=== PATIENT | female | born 1960 | race Caucasian/White ===

== ENCOUNTER 2023-10-26 08:50 | Emergency (ER) | payer BC ==
[~2023-10-26] VITALS: Ht 167.6 cm; Wt 70.2 kg
[~2023-10-26 08:50] MED LIST: CITA20TA28 PO; LIDO700A5 TP; TRAZ-256 PO
[2023-10-26 10:52] LABS: BASOPHILS # (AUTO) 0.1 X10'3 (0-0.2); BASOPHILS % (AUTO) 0.3 % (0-1); EOSINOPHILS % (AUTO) 0.2 % (0-6); HEMATOCRIT 34.5 % (35.0-45.0); HEMOGLOBIN 11.6 g/dl (12.0-16.0); LYMPHOCYTES # (AUTO) 0.9 X10'3 (1.1-4.8); LYMPHOCYTES % (AUTO) 4.8 % (21-51); MEAN CORPUSCULAR HEMOGLOBIN 29.6 PG (27.0-31.0); MEAN CORPUSCULAR HGB CONC 33.6 g/dL (33.0-36.5); MEAN PLATELET VOLUME 6.9 FL (7.4-10.4); MONOCYTES # (AUTO) 0.8 X10'3 (0-0.9); MONOCYTES % (AUTO) 4.3 % (2-12); NEUTROPHILS # (AUTO) 17.5 X10'3 (1.8-7.7); NEUTROPHILS % (AUTO) 90.4 % (42-75); PLATELET COUNT 378 X10'3 (140-440); RED BLOOD COUNT 3.92 X10'6 (4.20-5.60); RED CELL DISTRIBUTION WIDTH 13.1 % (11.5-14.5); WHITE BLOOD COUNT 19.4 X10'3 (4.5-11.0)
[2023-10-26 11:11] LABS: ALANINE AMINOTRANSFERASE 37 U/L (12-78); ALBUMIN 2.6 G/DL (3.4-5.0); ALBUMIN/GLOBULIN RATIO 0.6 (1.1-1.5); ALKALINE PHOSPHATASE 139 IU/L (46-116); AMYLASE 16 U/L (25-115); ANION GAP 11 (8-16); ASPARTATE AMINO TRANSFERASE 16 U/L (10-37); BILIRUBIN,TOTAL 0.3 MG/DL (0.1-1.0); CALCIUM 8.7 MG/DL (8.5-10.1); CHLORIDE 95 MMOL/L (99-107); CREATININE 0.71 MG/DL (0.40-0.90); GLUCOSE 160 MG/DL (70-104); LIPASE 23 U/L (16-77); POTASSIUM 3.5 MMOL/L (3.5-5.1); SODIUM 132 MMOL/L (135-145); TOTAL CARBON DIOXIDE 25.7 MMOL/L (24-32); TOTAL PROTEIN 7.2 G/DL (6.4-8.2); eCRCL 78 ML/MIN; eGFR 84 ML/MIN
[2023-10-26 11:19] LABS: BLOOD UREA NITROGEN 5 MG/DL (7-18)
[2023-10-26] MEDS: normal saline 1000ML IV soln IV ONE (11:41)
[2023-10-26] MEDS: ondansetron/PF 4mg/2ml inj IV ONE (11:41)
[2023-10-26] MEDS: morphine 4 MG/ML inj SYRINge IV ONE ×6 (11:41→23:54)
[2023-10-26] MEDS ORDERED: iohexol 300mg/ml 100ml inj. ONE (11:53)
[2023-10-26] MEDS: acetaminophen 325mg tablet PO ONE (11:54)
[2023-10-26] MEDS: piperacillin/tazo 4.5gm/100ml 100 ML IV SCH ×2 (12:14→20:20)
[2023-10-26 14:12] LABS: BILIRUBIN,URINE NEGATIVE (Neg); CLARITY,URINE CLEAR (Clear); COLOR,URINE STRAW (Yellow); GLUCOSE, URINE NEGATIVE (Neg); KETONES,URINE NEGATIVE (Neg); LEUKOCYTE ESTERASE ,URINE TRACE (Neg); NITRITES, URINE NEGATIVE (Neg); OCCULT BLOOD,URINE MODERATE (Neg); PH,URINE 6.5 (4.8-8.0); PROTEIN,URINE NEGATIVE (Neg); UROBILINOGEN,URINE 0.2 E.U/dL (0.2-1.0)
[2023-10-26 14:18] LABS: UA COLLECTION TYPE STRAIGHT CATH
[2023-10-26 14:20] LABS: BACTERIA,URINE NONE SEEN /HPF (Neg); SQUAMOUS EPITHELIAL CELL,UR FEW /LPF (FEW); WBC,URINE 0-4 /HPF (0-4)
[2023-10-26] MEDS: normal saline 500ml IV soln 500 ML IV SCH (14:26)
[2023-10-26] MEDS: HYDROmorphone inj. 0.5 MG/0.5 ML DISP.SYRIN IV ONE (19:31)
[2023-10-26] MEDS: normal saline 1000ml 1,000 ML IV ONE (20:20)
[2023-10-27] MEDS: LIDOcaine 5% patch TP SCH (00:42)
[2023-10-27] MEDS: LORazepam 2 mg/ml vial IV ONE ×2 (02:47→07:37)
[2023-10-27] MEDS: piperacillin/tazo 3.375gm/50ml 50 ML IV ONE (05:29)
[2023-10-27] MEDS: morphine 4 MG/ML inj SYRINge IV ONE (07:37)
[2023-10-27 09:06] VITALS: BP 110/59; PULSE 101; RESP 16; TEMP 99; O2SAT 97
== END 2023-10-27 09:14 | disposition short-term general hospital (02) ==
LOC: ER 08:51
DX: N70.93 Salpingitis and oophoritis, unspecified (principal); A41.9 Sepsis, unspecified organism; Z79.899 Other long term (current) drug therapy
CPT/HCPCS: 36415; 71260; 74177; 80053; 81001; 82150; 83605; 83690; 84145; 85025; 87040; 87077; 87081; 87088; 87185; 87210; 96361; 96365; 96366; 96375; 96376; 99291; 99292; J1170; J2060; J2270; J2405; J2543; J3490; J7030; J7040; Q9967; 71250; 74176; A4353